=== PATIENT | female | born 1980 | race Hispanic/Latino ===

== ENCOUNTER 2019-02-23 18:24 | Emergency (ER) | payer MEDICAID ==
[~2019-02-23 18:24] MED LIST: FURO-151 PO; LEVO500T2 PO; METF-446 PO; PRED20B PO; SIMV-43 PO; TIOT18CA3 IH
[2019-02-23] MEDS ORDERED: IPRATROPIUM/ALBUTEROL SULFATE 3 ML SOLUTION IH ONE (19:00)
== END 2019-02-23 21:53 | disposition left against medical advice (07) ==
LOC: EDH 18:24
DX: R05 Cough (principal); I10 Essential (primary) hypertension; E11.9 Type 2 diabetes mellitus without complications; E78.5 Hyperlipidemia, unspecified; E66.01 Morbid (severe) obesity due to excess calories; Z98.890 Other specified postprocedural states; Z68.44 Body mass index [BMI] 60.0-69.9, adult; Z87.891 Personal history of nicotine dependence
CPT/HCPCS: 71046; 93005; 94640